=== PATIENT | female | born 2000 | race Two or more races ===

== ENCOUNTER 2020-08-12 19:35 | Emergency (ER) | payer OTHER ==
[~2020-08-12] VITALS: Ht 165.1 cm; Wt 95.0 kg
[2020-08-12] MEDS ORDERED: BUSP10TA23 PO (19:42)
[2020-08-12] MEDS ORDERED: ESCI-8 PO (19:42)
[2020-08-12] MEDS ORDERED: IBUPROFEN 600 MG TABLET PO ONE (19:45)
[2020-08-12 21:00] VITALS: BP 127/67
[2020-08-12] MEDS ORDERED: HYDROCODONE/ACETAMINOPHEN 5-325 MG TABLET PO ONE (21:15)
== END 2020-08-12 21:41 | disposition home or self-care (01) ==
LOC: EMS 19:43
DX: S62.326A Displaced fracture of shaft of fifth metacarpal bone, right hand, initial encounter for closed fracture (principal); F41.9 Anxiety disorder, unspecified; F32.9 Major depressive disorder, single episode, unspecified; W22.01XA Walked into wall, initial encounter; Y93.89 Activity, other specified; Y92.89 Other specified places as the place of occurrence of the external cause; Y99.8 Other external cause status
CPT/HCPCS: 99283

== ENCOUNTER 2022-11-26 19:14 | Emergency (ER) | payer OTHER ==
[~2022-11-26] VITALS: Ht 165.1 cm; Wt 111.4 kg
[~2022-11-26 19:14] MED LIST: BUSP10TA23 PO; ESCI-8 PO
[2022-11-26 19:21] VITALS: BP 118/58
[2022-11-26] MEDS ORDERED: POVIDONE-IODINE 10% 120 ML SOLUTION TP ONE (20:15)
[2022-11-26] MEDS ORDERED: LIDOCAINE 1% 10 ML VIAL SQ ONE (20:15)
[2022-11-26] MEDS ORDERED: CEPH-558 PO ×2 (20:25→22:03)
[2022-11-26] MEDS ORDERED: SULF-261 PO ×2 (20:25→22:03)
[2022-11-26] MEDS ORDERED: IBUP-1492 PO ×2 (20:25→22:03)
[2022-11-26 21:16] LABS: GLUCOMETER DEV NAME(LOC) ERT.5; GLUCOSE,POINT OF CARE 87 MG/DL (70-110)
== END 2022-11-26 21:00 | disposition home or self-care (01) ==
LOC: EMS 19:19
DX: L02.211 Cutaneous abscess of abdominal wall (principal); F41.9 Anxiety disorder, unspecified; F32.A Depression, unspecified
CPT/HCPCS: 99283; 10060; 82962; 82948; J3490

== ENCOUNTER 2022-11-28 08:43 | Emergency (ER) | payer OTHER ==
[~2022-11-28] VITALS: Ht 165.1 cm; Wt 111.4 kg
[~2022-11-28 08:43] MED LIST changes: +CEPH-558 PO; +IBUP-1492 PO; +SULF-261 PO
[2022-11-28 10:06] VITALS: BP 110/64
== END 2022-11-28 10:10 | disposition home or self-care (01) ==
LOC: EMS 08:43
DX: L02.211 Cutaneous abscess of abdominal wall (principal); F41.9 Anxiety disorder, unspecified; F32.A Depression, unspecified
CPT/HCPCS: 99282; Z7502